=== PATIENT | male | born 1960 | race African-American/Black ===

== ENCOUNTER 2019-05-12 14:51 | Inpatient (IN) | payer OTHER ==
[2019-05-12 17:31] VITALS: BMI 23.3
--- NOTE | 2019-05-12 21:17 | HP ---
COWS - Scale Resting Pulse: 0= [place] 80 or Below Sweatin= Chills/Flushing Restless Observation: 1= Difficult to Sit Still Pupil Size: 0= Normal to Room Light Bone or Joint Aches: 1= Mild Discomfort Runny Nose/ Eye Tearin= Nasal Congestion GI Upset > 30mins: 1= Stomach Cramp Tremor Observation: 1= Tremor [place], Not Seen Yawning Observation: 1= 1-2x During Session Anxiety or Irritability: 2=Irritable/Anxious Goose Flesh Skin: 3=Piloerection COWS Score: 12 CIWA Score - Admission Criteria OASAS Guidelines: Admission for Medically Managed Detox: Requires at least one of the followin. CIWA greater than 12 2. Seizures within the past 24 hours 3. Delirium tremens within the past 24 hours 4. Hallucinations within the past 24 hours 5. Acute intervention needed for co occurring medical disorder 6. Acute intervention needed for co occurring psychiatric disorder 7. Severe withdrawal that cannot be handled at a lower level of care (continued vomiting, continued diarrhea, abnormal vital signs) requiring intravenous medication and/or fluids 8. Admission ROS [facility] Chief Complaint: here for heroin detox Allergies/Adverse Reactions: Allergies Allergy/AdvReac Type Severity Reaction Status Date / Time No Known Allergies Allergy Verified 05/12/19 17:12 History of Present Illness: 58yo with HIV, seizures from head injury, PCP- at [facility]. States has not taken seizure or HIV meds for about 2 months. Is usually on Keppra- will restart while pt here Heroin- started at age 10. Was in a methadone program up until 18 months ago when asked to leave b/c of continued cocaine use. Using about heroin 10 bags/day , sniffing. cocaine- $50-60/day MJ- occ DUR- no controlled substances UTox- THC, karl, MOP Exam Limitations: No Limitations - Ebola screening Have you traveled outside of the country in the last 21 days: No Have you had contact with anyone from an Ebola affected area: No Do you have a fever: No - Review of Systems Constitutional: No Symptoms Reported EENT: reports: No Symptoms Reported Respiratory: reports: No Symptoms reported Cardiac: reports: No Symptoms Reported Integumentary: reports: No Symptoms Reported Neuro: reports: No Symptoms reported Endocrine: reports: No Symptoms Reported Hematology: reports: No Symptoms Reported Psychiatric: reports: No Sypmtoms Reported Other Systems: Reviewed and Negative Patient History - Patient Medical History Hx Asthma: Yes Hx Chronic Obstructive Pulmonary Disease (COPD): No Hx Cardiac Disorders: No Hx Hypertension: No Hx Seizures: Yes Hx Diabetes: No Hx Gastrointestinal Disorders: No Hx Genitourinary Disorders: No Hx Sexually Transmitted Disorders: No Hx Renal Disease (ESRD): No - Patient Surgical History Past Surgical History: Yes Hx Orthopedic Surgery: Yes (left hip 1991) - PPD History Previous Implant?: Yes Documented Results: Positive w/o proof Implanted On Prior [facility] Admission?: No - Smoking Cessation Smoking history: Current every day smoker Have you smoked in the past 12 months: Yes Aproximately how many cigarettes per day: 2 Hx Chewing Tobacco Use: No Initiated information on smoking cessation: Yes 'Breaking Loose' booklet given: 05/12/19 - Substance & Tx. History Substance Use Type: Heroin, Marijuana - Substances abused Heroin Substance route: Inhalation Frequency: Daily Amount used: 10 to 15 bags Age of first use: 10 Date of last use: 05/12/19 Family Disease History - Family Disease History Family History: Denies Admission Physical Exam S - Vital Signs Vital Signs: Vital Signs - 24 hr 05/12/19 05/12/19 17:12 18:23 Temperature 99.7 F H 99.7 F H Pulse Rate 63 63 Respiratory 16 16 Rate Blood Pressure 147/78 147/78 - Physical General Appearance: Yes: Within Normal Limits, Cachetic HEENTM: Yes: Within Normal Limits, Hearing grossly Normal, ELIAS, Pharynx Normal Respiratory: Yes: Within Normal Limits, Lungs Clear Cardiology: Yes: Within Normal Limits, Regular Rhythm, Regular Rate Abdominal: Yes: Within Normal Limits, Normal Bowel Sounds Extremities: Yes: Within Normal Limits, Normal Inspection Neurological: Yes: Within Normal Limits, 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, Fully Oriented, Alert Integumentary: Yes: Within Normal Limits, Normal Color - Diagnostic (1) HIV (human immunodeficiency virus infection) Current Visit: Yes Status: Acute (2) Heroin use disorder, mild Current Visit: Yes Status: Acute (3) Cocaine use disorder Current Visit: Yes Status: Acute (4) Seizure Current Visit: Yes Status: Acute Breathalyzer - Breathalyzer Breathalyzer: 0 Urine Drug Screen - Test Device Lot number: [id number] Expiration date: 02/10/21 - Control Is test valid?: Yes - Results Drug screen NEGATIVE: No Urine drug screen results: THC-Marijuana, KARL-Cocaine, MOP-Opiates Inpatient Rehab Admission - Rehab Decision to Admit Inpatient rehab admission?: No
[2019-05-12] MEDS ORDERED: NALOXONE HCL 0.4 MG/ML VIAL IM PRN (22:06)
[2019-05-12] MEDS ORDERED: METHADONE HCL 10 MG TABLET (FOR DETOX USE ONLY) PO ONE (22:06)
[2019-05-12] MEDS ORDERED: MENTHOL/PHENOL 1 EACH UD MM PRN (22:06)
[2019-05-12] MEDS ORDERED: NICOTINE POLACRILEX 4 MG GUM BUC PRN (22:06)
[2019-05-12] MEDS ORDERED: MAGNESIUM HYDROX 2400MG/30ML ORAL SUSPENSION 30 ML CUP PO PRN (22:06)
[2019-05-12] MEDS ORDERED: cloNIDine HCL 0.1 MG TABLET PO PRN (22:06)
[2019-05-12] MEDS ORDERED: MAGNESIUM CITRATE 300 ML BOTTLE PO PRN (22:06)
[2019-05-12] MEDS ORDERED: BISMUTH SUBSALICYLATE 524 MG/30 ML UD PO PRN (22:06)
[2019-05-12] MEDS ORDERED: MAG HYDROX/AL HYDROX/SIMETH 30 ML UNIT-DOSE CUP PO PRN (22:06)
[2019-05-12] MEDS ORDERED: ACETAMINOPHEN 325 MG TABLET (FP) PO PRN ×2 (22:06)
[2019-05-12] MEDS ORDERED: METHOCARBAMOL 500 MG TABLET PO PRN (22:06)
[2019-05-12] MEDS ORDERED: IBUPROFEN 400 MG TABLET (FP) PO PRN (22:06)
[2019-05-12] MEDS ORDERED: hydrOXYzine HCL 25 MG TABLET (FP) PO PRN (22:06)
[2019-05-12] MEDS ORDERED: cloNIDine HCL 0.1 MG TABLET PO ONE (22:22)
[2019-05-12] MEDS: MELATONIN 5 MG TABLETS PO PRN (22:43)
[2019-05-13] MEDS ORDERED: METHADONE HCL 5 MG TABLET (FOR DETOX USE ONLY) ONE (09:00)
[2019-05-13] MEDS ORDERED: METHADONE HCL 10 MG TABLET (FOR DETOX USE ONLY) ONE (09:01)
[2019-05-13] MEDS: PRENATAL VITAMINS W/ FOLIC ACID TABLET (FP) PO SCH (09:02)
[2019-05-13] MEDS: levETIRAcetam 500 MG TABLET (FP) PO SCH ×2 (09:02→22:10)
[2019-05-13] MEDS ORDERED: METHADONE (DETOX) 20 MG, METHADONE (DETOX) 5 MG PO ONE (10:00)
[2019-05-13 10:28] LABS: HEMATOCRIT 39.4 % (35.4-49); HEMOGLOBIN 13.2 GM/dL (11.7-16.9); MCH 28.1 pg (25.7-33.7); MCHC 33.5 g/dl (32.0-35.9); MEAN CELL VOLUME 83.8 fl (80-96); MEAN PLT VOLUME 9.3 fl (7.5-11.1); PLATELET COUNT 138 K/MM3 (134-434); RDW 14.1 % (11.9-15.9); WHITE BLOOD COUNT 4.7 K/mm3 (4.0-10.0)
[2019-05-13 10:38] LABS: ALBUMIN 3.3 g/dl (3.4-5.0); BILIRUBIN,TOTAL 0.5 mg/dL (0.2-1); BLOOD UREA NITROGEN 13.5 mg/dL (7-18); CALCIUM 9.5 mg/dL (8.5-10.1); CREATININE 1.4 mg/dL (0.55-1.3); POTASSIUM 3.6 mmol/L (3.5-5.1); TOT PROT 7.9 g/dl (6.4-8.2)
[2019-05-13] MEDS: clonazePAM 0.5 MG TABLET PO PRN (10:51)
--- NOTE | 2019-05-13 12:37 | PN ---
BHS COWS - Scale Resting Pulse: 0= [place] 80 or Below Sweatin= Chills/Flushing Restless Observation: 1= Difficult to Sit Still Pupil Size: 1= Pupils >than Normal Bone or Joint Aches: 1= Mild Discomfort Runny Nose/ Eye Tearin= Nasal Congestion GI Upset > 30mins: 1= Stomach Cramp Tremor Observation of Outstretched Hands: 1= Tremor [place], Not Seen Yawning Observation: 0= None Anxiety or Irritability: 1=Feels Anxious/Irritable Goose Flesh Skin: 0=Smooth Skin COWS Score: 8 BHS Progress Note (SOAP) Subjective: Pt states he is doing well with heroin detox protocol O: Vital Signs - 24 hr 05/12/19 05/12/19 05/13/19 17:12 18:23 03:30 Temperature 99.7 F H 99.7 F H Pulse Rate 63 63 Respiratory 16 16 18 Rate Blood Pressure 147/78 147/78 05/13/19 05/13/19 07:30 09:16 Temperature 98.1 F 97.4 F L Pulse Rate 55 L 68 Respiratory 16 18 Rate Blood Pressure 138/82 124/90 Laboratory Tests 05/13/19 05/13/19 05/13/19 07:30 07:30 07:30 WBC 4.7 RBC 4.70 Hgb 13.2 Hct 39.4 MCV 83.8 MCH 28.1 MCHC 33.5 RDW 14.1 Plt Count 138 MPV 9.3 Sodium 143 Potassium 3.6 Chloride 109 H Carbon Dioxide 30 Anion Gap 4 L BUN 13.5 Creatinine 1.4 H Est GFR (CKD-EPI)AfAm 62.84 Est GFR (CKD-EPI)NonAf 54.22 Random Glucose 104 Calcium 9.5 Total Bilirubin 0.5 AST 42 H ALT 47 Alkaline Phosphatase 53 Total Protein 7.9 Albumin 3.3 L RPR Titer Nonreactive low GFR low albumin increased AST alert and oriented mild tremulousness a/p Heroin detox- doing well with methadone detox protocol
[2019-05-13 15:08] LABS: EPI CELLS 0.7 /HPF (0-5/HPF); HYALINE CASTS 2 /lpf (0-8); URINE APPEARANCE CLEAR; URINE BILIRUBIN NEGATIVE (NEGATIVE); URINE COLOR YELLOW; URINE GLUCOSE (UA) NEGATIVE (NEGATIVE); URINE KETONE NEGATIVE (NEGATIVE); URINE LEUK ESTERASE NEGATIVE (NEGATIVE); URINE NITRITE NEGATIVE (NEGATIVE); URINE PROTEIN 2+ (NEGATIVE); URINE RBC 1 /hpf (0-4); URINE WBC 0 /hpf (0-5)
[2019-05-13] MEDS: THIAMINE HCL 100 MG TABLET (FP) PO SCH (22:10)
[2019-05-13] MEDS: MELATONIN 5 MG TABLETS PO PRN (22:10)
[2019-05-14] MEDS ORDERED: METHADONE HCL 10 MG TABLET (FOR DETOX USE ONLY) PO ONE (10:00)
[2019-05-14] MEDS: levETIRAcetam 500 MG TABLET (FP) PO SCH ×2 (10:11→22:01)
[2019-05-14] MEDS: PRENATAL VITAMINS W/ FOLIC ACID TABLET (FP) PO SCH (10:11)
[2019-05-14] MEDS: clonazePAM 0.5 MG TABLET PO PRN ×2 (10:14→22:01)
--- NOTE | 2019-05-14 14:29 | PN ---
BHS COWS - Scale Resting Pulse: 0= [place] 80 or Below Sweatin= Chills/Flushing Restless Observation: 1= Difficult to Sit Still Pupil Size: 0= Normal to Room Light Bone or Joint Aches: 1= Mild Discomfort Runny Nose/ Eye Tearin= None GI Upset > 30mins: 0= None Tremor Observation of Outstretched Hands: 0= None Yawning Observation: 1= 1-2x During Session Anxiety or Irritability: 2=Irritable/Anxious Goose Flesh Skin: 3=Piloerection COWS Score: 9 BHS Progress Note (SOAP) Subjective: Anxious, Sweating. Objective: PATIENT A & O X 3, OBSERVED AMBULATING ON UNIT UNASSISTED. IN NO ACUTE DISTRESS. 05/14/19 14:30 Vital Signs Temperature 98.4 F 05/14/19 13:39 Pulse Rate 60 05/14/19 13:39 Respiratory Rate 18 05/14/19 13:39 Blood Pressure 120/79 05/14/19 13:39 O2 Sat by Pulse Oximetry (%) Laboratory Tests 05/13/19 05/13/19 05/13/19 07:30 07:30 07:30 WBC 4.7 RBC 4.70 Hgb 13.2 Hct 39.4 MCV 83.8 MCH 28.1 MCHC 33.5 RDW 14.1 Plt Count 138 MPV 9.3 Sodium 143 Potassium 3.6 Chloride 109 H Carbon Dioxide 30 Anion Gap 4 L BUN 13.5 Creatinine 1.4 H Est GFR (CKD-EPI)AfAm 62.84 Est GFR (CKD-EPI)NonAf 54.22 Random Glucose 104 Calcium 9.5 Total Bilirubin 0.5 AST 42 H ALT 47 Alkaline Phosphatase 53 Total Protein 7.9 Albumin 3.3 L Urine Color Urine Appearance Urine pH Ur Specific [place] Urine Protein Urine Glucose (UA) Urine Ketones Urine Blood Urine Nitrite Urine Bilirubin Urine Urobilinogen Ur Leukocyte Esterase Urine WBC (Auto) Urine RBC (Auto) Urine Casts (Auto) U Epithel Cells (Auto) Urine Bacteria (Auto) RPR Titer Nonreactive 05/13/19 10:10 WBC RBC Hgb Hct MCV MCH MCHC RDW Plt Count MPV Sodium Potassium Chloride Carbon Dioxide Anion Gap BUN Creatinine Est GFR (CKD-EPI)AfAm Est GFR (CKD-EPI)NonAf Random Glucose Calcium Total Bilirubin AST ALT Alkaline Phosphatase Total Protein Albumin Urine Color Yellow Urine Appearance Clear Urine pH 8.0 Ur Specific [place] 1.017 Urine Protein 2+ H Urine Glucose (UA) Negative Urine Ketones Negative Urine Blood Negative Urine Nitrite Negative Urine Bilirubin Negative Urine Urobilinogen 1.0 Ur Leukocyte Esterase Negative Urine WBC (Auto) 0 Urine RBC (Auto) 1 Urine Casts (Auto) 2 U Epithel Cells (Auto) 0.7 Urine Bacteria (Auto) 1.0 RPR Titer LABS NOTED. Assessment: 05/14/19 14:30 WITHDRAWAL SYMPTOMS. Plan: CONTINUE DETOX. INCREASE DAILY PO WATER INTAKE. PATIENT REQUESTS TRIUMEQ FOR TREATMENT OF H.I.V. PATIENT REPORTS HISTORY OF PRESCRIPTION OF THIS MEDICATION ON OUTPATIENT BASIS, BUT THAT HEW DID NOT BRING THIS MEDICATION WITH HIM AT TIME OF ADMISSION TO DETOX UNIT. PATIENT ALSO REPORTS THAT HE HAS NOT TAKEN THIS MEDICATION FOR APPROX. THE LAST 1 WEEK. PATIENT MADE AWARE THAT TRIUMEQ WOULD NOT BE ORDERED DURING THIS DETOX ADMISSION AND HE WAS ADVISED TO FOLLOW-UP WITH OUTPATIENT H.I.V. / I.D. MEDICAL PROVIDER FOR FURTHER EVALUATION AND TREATMENT. PATIENT VERBALIZED UNDERSTANDING OF RECOMMENDATION.
[2019-05-14] MEDS: THIAMINE HCL 100 MG TABLET (FP) PO SCH (22:01)
[2019-05-15] MEDS: MELATONIN 5 MG TABLETS PO PRN (01:35)
[2019-05-15] MEDS: clonazePAM 0.5 MG TABLET PO PRN (05:32)
[2019-05-15] MEDS ORDERED: METHADONE HCL 10 MG TABLET (FOR DETOX USE ONLY) ONE (09:32)
[2019-05-15] MEDS ORDERED: METHADONE HCL 5 MG TABLET (FOR DETOX USE ONLY) ONE (09:32)
[2019-05-15] MEDS ORDERED: METHADONE (DETOX) 10 MG, METHADONE (DETOX) 5 MG PO ONE (10:00)
[2019-05-15] MEDS: PRENATAL VITAMINS W/ FOLIC ACID TABLET (FP) PO SCH (10:20)
[2019-05-15] MEDS: levETIRAcetam 500 MG TABLET (FP) PO SCH ×2 (10:21→22:11)
[2019-05-15] MEDS: diazePAM 5 MG TABLET PO PRN ×3 (11:48→22:12)
--- NOTE | 2019-05-15 12:25 | PN ---
BHS COWS - Scale Resting Pulse: 0= [place] 80 or Below Sweatin=Flushed/Facial Moisture Restless Observation: 1= Difficult to Sit Still Pupil Size: 0= Normal to Room Light Bone or Joint Aches: 1= Mild Discomfort Runny Nose/ Eye Tearin= None GI Upset > 30mins: 0= None Tremor Observation of Outstretched Hands: 0= None Yawning Observation: 1= 1-2x During Session Anxiety or Irritability: 2=Irritable/Anxious Goose Flesh Skin: 0=Smooth Skin COWS Score: 7 BHS Progress Note (SOAP) Subjective: anxiety sweats body aches irritable Objective: 05/15/19 12:24 Vital Signs Temperature 97.7 F 05/15/19 09:12 Pulse Rate 60 05/15/19 09:12 Respiratory Rate 18 05/15/19 09:12 Blood Pressure 148/84 05/15/19 09:12 O2 Sat by Pulse Oximetry (%) Laboratory Tests 05/13/19 05/13/19 05/13/19 07:30 07:30 07:30 WBC 4.7 RBC 4.70 Hgb 13.2 Hct 39.4 MCV 83.8 MCH 28.1 MCHC 33.5 RDW 14.1 Plt Count 138 MPV 9.3 Sodium 143 Potassium 3.6 Chloride 109 H Carbon Dioxide 30 Anion Gap 4 L BUN 13.5 Creatinine 1.4 H Est GFR (CKD-EPI)AfAm 62.84 Est GFR (CKD-EPI)NonAf 54.22 Random Glucose 104 Calcium 9.5 Total Bilirubin 0.5 AST 42 H ALT 47 Alkaline Phosphatase 53 Total Protein 7.9 Albumin 3.3 L Urine Color Urine Appearance Urine pH Ur Specific [place] Urine Protein Urine Glucose (UA) Urine Ketones Urine Blood Urine Nitrite Urine Bilirubin Urine Urobilinogen Ur Leukocyte Esterase Urine WBC (Auto) Urine RBC (Auto) Urine Casts (Auto) U Epithel Cells (Auto) Urine Bacteria (Auto) RPR Titer Nonreactive 05/13/19 10:10 WBC RBC Hgb Hct MCV MCH MCHC RDW Plt Count MPV Sodium Potassium Chloride Carbon Dioxide Anion Gap BUN Creatinine Est GFR (CKD-EPI)AfAm Est GFR (CKD-EPI)NonAf Random Glucose Calcium Total Bilirubin AST ALT Alkaline Phosphatase Total Protein Albumin Urine Color Yellow Urine Appearance Clear Urine pH 8.0 Ur Specific [place] 1.017 Urine Protein 2+ H Urine Glucose (UA) Negative Urine Ketones Negative Urine Blood Negative Urine Nitrite Negative Urine Bilirubin Negative Urine Urobilinogen 1.0 Ur Leukocyte Esterase Negative Urine WBC (Auto) 0 Urine RBC (Auto) 1 Urine Casts (Auto) 2 U Epithel Cells (Auto) 0.7 Urine Bacteria (Auto) 1.0 RPR Titer labs noted aaox3 ambulating no acute distress Assessment: 05/15/19 12:25 withdrawals Plan: continue detox increase fluids valium 10mg prn
[2019-05-15] MEDS: THIAMINE HCL 100 MG TABLET (FP) PO SCH (22:11)
[2019-05-16] MEDS: diazePAM 5 MG TABLET PO PRN (06:20)
[2019-05-16] MEDS: PRENATAL VITAMINS W/ FOLIC ACID TABLET (FP) PO SCH (09:51)
[2019-05-16] MEDS: levETIRAcetam 500 MG TABLET (FP) PO SCH (09:51)
--- NOTE | 2019-05-16 09:54 | PN ---
BHS COWS - Scale Resting Pulse: 0= [place] 80 or Below Sweatin= Chills/Flushing Restless Observation: 1= Difficult to Sit Still Pupil Size: 0= Normal to Room Light Bone or Joint Aches: 1= Mild Discomfort Runny Nose/ Eye Tearin= None GI Upset > 30mins: 0= None Tremor Observation of Outstretched Hands: 0= None Yawning Observation: 1= 1-2x During Session Anxiety or Irritability: 2=Irritable/Anxious Goose Flesh Skin: 0=Smooth Skin COWS Score: 6 BHS Progress Note (SOAP) Subjective: c/o mild sweats, irritability, and anxiety. Objective: 05/16/19 09:52 Vital Signs 05/16/19 05/16/19 06:15 09:29 Temperature 97.3 F L 98.1 F Pulse Rate 72 70 Respiratory 16 18 Rate Blood Pressure 136/92 143/95 Assessment: 05/16/19 09:52 AOX3, in no acute distress. Full ROM, ambulating in the unit. mild withdrawal symptoms. Pt is for discharge tomorrow, as per pt he has refills for his home medications. Plan: continue detox. D/C in AM.
[2019-05-16] MEDS ORDERED: METHADONE HCL 10 MG TABLET (FOR DETOX USE ONLY) PO ONE (10:00)
[2019-05-16 14:29] VITALS: BP 145/65; PULSE 80; TEMP 98.2
--- NOTE | 2019-05-16 14:39 | PN ---
[facility] Progress Note Note: I was called to see this 58year old male because of fall. Pt was seen in his room lying in bed in no respiratory distress. As per RN, pt's roommate notified her that pt was on the floor, went to see pt lying on the floor and pt was helped back to his bed. Pt states, he fell and hit his head on the floor. Denies any dizziness, syncope, headache, sob, N/V,or LOC. Noted small bump to occipital area, pt states, it's an old bump. 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 Pt is to be transferred to the ED for further evaluation. Fall protocol #1 initiated. Verbal report given to Dr. Rodriguez at [facility] ED. Vital Signs 05/16/19 05/16/19 09:29 13:23 Temperature 98.1 F 98.4 F Pulse Rate 70 68 Respiratory 18 17 Rate Blood Pressure 143/95 142/90 Vital signs 98.2, 80, 20, 145/65.
--- NOTE | 2019-05-16 14:52 | DS ---
[facility] Detox Discharge Summary Admission Date: 05/12/19 Discharge Date: 05/16/19 (Left AMA) - History Present History: Cannabis Dependence, Opioid Dependence Additional Comments: Pt refused to go with EMS to the ED for further evaluate for s/p fall and hitting head on the floor. Pt left AMA. The importance of going to the ED for evaluation was explained to pt but to no avail. Pt was instructed to go seek medical help if any feelings of dizziness, severe headache, N/V, or syncope. Pt was also encouraged to follow-up with a CD oupatient program and also to follow- up with his pmd for evaluation and the start of his antiretroviral medications. Pt was adamant about the information given. Pt is AOX3 and in no acute respiratory distress. Pertinent Past History: H/O HIV+, asthma, seizures, heroin, and cannabis use disorder. - Physical Exam Results Vital Signs: Vital Signs Temperature 98.2 F 05/16/19 13:30 Pulse Rate 80 05/16/19 13:30 Respiratory Rate 20 05/16/19 13:30 Blood Pressure 145/65 05/16/19 13:30 O2 Sat by Pulse Oximetry (%) Vital Signs 05/16/19 05/16/19 05/16/19 09:29 13:23 13:30 Temperature 98.1 F 98.4 F 98.2 F Pulse Rate 70 68 80 Respiratory 18 17 20 Rate Blood Pressure 143/95 142/90 145/65 Lab Results WBC 4.7 K/mm3 (4.0-10.0) 05/13/19 07:30 RBC 4.70 M/mm3 (4.00-5.60) 05/13/19 07:30 Hgb 13.2 GM/dL (11.7-16.9) 05/13/19 07:30 Hct 39.4 % (35.4-49) 05/13/19 07:30 MCV 83.8 fl (80-96) 05/13/19 07:30 MCHC 33.5 g/dl (32.0-35.9) 05/13/19 07:30 RDW 14.1 % (11.9-15.9) 05/13/19 07:30 Plt Count 138 K/MM3 (134-434) 05/13/19 07:30 Sodium 143 mmol/L (136-145) 05/13/19 07:30 Potassium 3.6 mmol/L (3.5-5.1) 05/13/19 07:30 Chloride 109 mmol/L (98-107) H 05/13/19 07:30 Carbon Dioxide 30 mmol/L (21-32) 05/13/19 07:30 Anion Gap 4 MMOL/L (8-16) L 05/13/19 07:30 BUN 13.5 mg/dL (7-18) 05/13/19 07:30 Creatinine 1.4 mg/dL (0.55-1.3) H 05/13/19 07:30 Random Glucose 104 mg/dL (74-106) 05/13/19 07:30 Calcium 9.5 mg/dL (8.5-10.1) 05/13/19 07:30 Labs noted. Pertinent Admission Physical Exam Findings: withdrawal symptoms. - Treatment Hospital Course: Detox Protocol Followed - Medication Discharge Medications: Ambulatory Orders Abacavir/Dolutegravir/Lamivudi [Triumeq 600-50-300 mg Tablet] 600 mg PO DAILY levETIRAcetam [Keppra -] 500 mg PO BID 05/12/19 - Diagnosis (1) Cocaine use disorder Current Visit: Yes Status: Acute (2) HIV (human immunodeficiency virus infection) Current Visit: Yes Status: Acute (3) Heroin use disorder, mild Current Visit: Yes Status: Acute (4) Seizure Current Visit: Yes Status: Acute - AMA Did Patient Leave Against Medical Advice: Yes
[2019-05-17] MEDS ORDERED: METHADONE HCL 5 MG TABLET (FOR DETOX USE ONLY) PO ONE (06:00)
== END 2019-05-16 15:00 | disposition left against medical advice (07) | DRG 770 ==
LOC: YASAS 14:51 → Y6N 21:26
PROVIDERS: ADMIT Surgery; ATTEND Surgery
PROC: HZ2ZZZZ Detoxification Services for Substance Abuse Treatment (ICD-10-PCS; principal; 2019-05-12)
DX: F11.23 Opioid dependence with withdrawal (principal); F14.20 Cocaine dependence, uncomplicated; F17.210 Nicotine dependence, cigarettes, uncomplicated; Z21 Asymptomatic human immunodeficiency virus [HIV] infection status; J45.909 Unspecified asthma, uncomplicated; G40.909 Epilepsy, unspecified, not intractable, without status epilepticus; W19.XXXA Unspecified fall, initial encounter; Y93.9 Activity, unspecified; Y92.230 Patient room in hospital as the place of occurrence of the external cause
CPT/HCPCS: 36415; 71046-TC-FY; 80053; 81003; 85027; 86593; J0735